=== PATIENT | male | born 1970 | race Caucasian/White ===

== ENCOUNTER 2018-10-02 19:49 | Emergency (ER) | payer OTHER ==
[~2018-10-02] VITALS: Ht 185.4 cm; Wt 69.0 kg
[~2018-10-02 19:49] MED LIST: ABILIFY5 MG; ABILIFY5 MG PO; MULTI VITAMIN1 EACH PO; STRATTERA40 MG
[2018-10-02] MEDS ORDERED: VITAMIN D5000 UNIT PO (20:19)
== END 2018-10-03 01:00 | disposition home or self-care (01) ==
LOC: ED 19:49
DX: R10.9 Unspecified abdominal pain (principal); R06.00 Dyspnea, unspecified; F17.290 Nicotine dependence, other tobacco product, uncomplicated; Z79.899 Other long term (current) drug therapy
CPT/HCPCS: 71260; 74177; 80053; 81001; 83690; 84484; 85025; 85379; 99284-25; Q9967

== ENCOUNTER 2021-05-12 15:55 | Emergency (ER) | payer OTHER ==
[~2021-05-12 15:55] MED LIST changes: +VITAMIN D5000 UNIT PO
--- NOTE | 2021-05-14 18:05 | EKG ---
[facility] [address] [place], [place] [address] Signed Normal sinus rhythm Rightward axis Borderline ECG No previous ECGs available Confirmed by NIRMALA RAYA MD ([id number] on 05/14/2021 6:05:05 PM Electronically Signed By: NIRMALA RAYA MD 05/14/21 1805 PATIENT NAME: FLAVIA SAWYER Electrocardiogram DATE OF : 72 PHYSICIAN: NIRMALA RAYA MD REPORT #: [id number] REPORT IS CONFIDENTIAL AND NOT TO BE RELEASED WITHOUT AUTHORIZATION
== END 2021-05-12 18:01 | disposition left against medical advice (07) ==
LOC: ED 15:55
DX: Z53.21 Procedure and treatment not carried out due to patient leaving prior to being seen by health care provider (principal)
CPT/HCPCS: 93005; 93010

== ENCOUNTER 2023-10-12 16:02 | Emergency (ER) | payer OTHER ==
[~2023-10-12] VITALS: Ht 185.4 cm; Wt 68.1 kg
[~2023-10-12 16:02] MED LIST changes: +HYDROCODON-ACE1 EA10 PO; +ONDANSETRON ODT8 MG PO
[2023-10-12 17:00] LABS: INFLUENZA B NAA NEGATIVE (NEGATIVE); RESPIRATORY SYNCYTIAL VIR NAA NEGATIVE (NEGATIVE)
[2023-10-12] MEDS ORDERED: SODIUM CHLORIDE 0.9% 1,000 ML IV ONE (17:15)
[2023-10-12] MEDS ORDERED: KETOROLAC TROMETHAMINE 30 MG/ML VIAL IV ONE (17:15)
[2023-10-12 18:19] VITALS: BP 122/70
--- NOTE | 2023-10-13 16:57 | EKG ---
[facility] [address] [facility] [place], [place] [address] Signed Normal sinus rhythm Normal ECG When compared with ECG of 18-DEC-2022 21:47, No significant change was found Confirmed by FLORENTIN BERTRAND MD ([id number]) on 10/13/2023 4:57:32 PM Electronically Signed By: FLORENTIN BERTRAND 10/13/23 1657 PATIENT NAME: FLAVIA SAWYER Electrocardiogram DATE OF : 72 PHYSICIAN: FLORENTIN BERTRAND REPORT #: [id number] REPORT IS CONFIDENTIAL AND NOT TO BE RELEASED WITHOUT AUTHORIZATION
== END 2023-10-12 18:15 | disposition home or self-care (01) ==
LOC: ED 16:02
PROVIDERS: Emergency Medicine
DX: U07.1 COVID-19 (principal); F17.200 Nicotine dependence, unspecified, uncomplicated
CPT/HCPCS: 87502; 93005; 93010; 96374; 99283-25; J1885; J7030; U0002

== ENCOUNTER 2024-05-02 20:34 | Emergency (ER) | payer OTHER ==
[~2024-05-02] VITALS: Ht 185.4 cm; Wt 68.2 kg
[2024-05-02] MEDS ORDERED: DIPHTH,PERTUSS(ACELL),TET VAC 0.5 ML SYRINGE IM ONE (21:00)
[2024-05-02] MEDS ORDERED: KETOROLAC TROMETHAMINE 60 MG/2 ML VIAL IM ONE (21:00)
[2024-05-02 22:42] VITALS: BP 134/88
== END 2024-05-02 22:42 | disposition home or self-care (01) ==
LOC: ED 20:34
DX: S20.212A Contusion of left front wall of thorax, initial encounter (principal); F17.290 Nicotine dependence, other tobacco product, uncomplicated; Y04.2XXA Assault by strike against or bumped into by another person, initial encounter
CPT/HCPCS: 71045; 90471; 90715; 96372; 99284-25; J1885

== ENCOUNTER 2024-12-22 20:25 | Emergency (ER) | payer OTHER ==
[~2024-12-22] VITALS: Ht 185.4 cm; Wt 70.0 kg
[2024-12-22] MEDS ORDERED: DIPHTH,PERTUSS(ACELL),TET VAC 0.5 ML SYRINGE IM ONE (21:30)
[2024-12-22] MEDS ORDERED: LIDOCAINE/RACEPINEP/TETRACAINE 3 ML SYR TOP ONE (21:45)
[2024-12-22 23:48] VITALS: BP 119/75
== END 2024-12-22 23:48 | disposition home or self-care (01) ==
LOC: ED 20:25
DX: S01.01XA Laceration without foreign body of scalp, initial encounter (principal); F17.200 Nicotine dependence, unspecified, uncomplicated; W18.30XA Fall on same level, unspecified, initial encounter
CPT/HCPCS: 12001; 70450; 99283-25